=== PATIENT | female | born 1975 | race Two or more races ===

== ENCOUNTER 2022-06-15 19:59 | Emergency (ER) | payer OTHER ==
[~2022-06-15] VITALS: Ht 167.6 cm; Wt 170.0 kg
[2022-06-15 20:01] VITALS: BP 113/88
[2022-06-16] MEDS ORDERED: NEOMYCIN-BACITRACIN-POLYM UNITDOSE PKG TOP OINT TOP ONE
== END 2022-06-16 02:22 | disposition home or self-care (01) ==
LOC: ER 19:59
DX: S01.01XA Laceration without foreign body of scalp, initial encounter (principal); S06.0X0A Concussion without loss of consciousness, initial encounter; F10.129 Alcohol abuse with intoxication, unspecified; Z90.710 Acquired absence of both cervix and uterus; Z88.0 Allergy status to penicillin; Z91.040 Latex allergy status; W18.39XA Other fall on same level, initial encounter; Y93.89 Activity, other specified; Y92.89 Other specified places as the place of occurrence of the external cause; Y99.8 Other external cause status
CPT/HCPCS: 12002; 70450; 72125